=== PATIENT | male | born 1965 | race African-American/Black ===

== ENCOUNTER 2016-08-31 12:17 | Emergency (ER) | payer MEDICARE, OTHER ==
[~2016-08-31] VITALS: Ht 167.6 cm; Wt 84.0 kg
[2016-08-31 12:19] VITALS: BP 175/101; PULSE 82; RESP 20; TEMP 98.1; O2SAT 97
[2016-08-31] MEDS ORDERED: LISI40TA PO ×2 (12:51→12:55)
[2016-08-31] MEDS ORDERED: HYDR25TA5 PO ×2 (12:51→12:55)
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
== END 2016-08-31 13:53 | disposition home or self-care (01) ==
LOC: NEPB 12:17
DX: I10 Essential (primary) hypertension (principal); Z76.0 Encounter for issue of repeat prescription; Z72.0 Tobacco use
CPT/HCPCS: 99281

== ENCOUNTER 2016-09-07 13:00 | Emergency (ER) | payer MEDICARE, OTHER ==
[~2016-09-07] VITALS: Ht 167.6 cm; Wt 85.0 kg
[~2016-09-07 13:00] MED LIST: HYDR25TA5 PO; LISI40TA PO
[2016-09-07 13:01] VITALS: BP 139/89; PULSE 99; RESP 18; TEMP 98.3; O2SAT 96
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
[2016-09-07 14:09] LABS: AUTOMATED NEUTROPHIL # 4.7 TH/MM3 (1.8-7.7); BASOPHIL % 0.6 % (0.0-2.0); EOSINOPHIL # 0.1 TH/MM3 (0-0.4); EOSINOPHIL % 1.4 % (0.0-4.0); HEMATOCRIT 38.2 % (39.0-51.0); HEMO FLAGS DIFF FINAL; LYMPH % 24.5 % (9.0-44.0); LYMPHOCYTE # 1.8 TH/MM3 (1.0-4.8); MEAN CELL VOLUME 86.1 FL (80.0-100.0); MEAN CORPUSCULAR HEMOGLOBIN 27.9 PG (27.0-34.0); MEAN CORPUSCULAR HGB CONC 32.4 % (32.0-36.0); MONO % 9.5 % (0.0-8.0); PLATELET COUNT 231 TH/MM3 (150-450); RED BLOOD COUNT 4.43 MIL/MM3 (4.50-5.90); RED CELL DISTRIBUTION WIDTH 14.8 % (11.6-17.2); WHITE BLOOD COUNT 7.4 TH/MM3 (4.0-11.0)
[2016-09-07 14:19] LABS: APTT (PATIENT) 33.6 SEC (24.3-30.1); INTERNATIONAL NORMALIZED RATIO 1.2 RATIO; PROTHROMBIN TIME - PATIENT 13.3 SEC (9.8-11.6)
[2016-09-07 14:32] LABS: BICARBONATE 30.1 MEQ/L (21.0-32.0); POTASSIUM 4.2 MEQ/L (3.5-5.1)
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
[2016-09-07 16:19] VITALS: BP 133/64; PULSE 88; RESP 20; O2SAT 100
[2016-09-07] MEDS ORDERED: DIPHTH/TETANUS/ACEL PERTUSSIS (BOOSTER) 0.5 ML VIAL/PFS IM ONE (16:30)
[2016-09-07] MEDS ORDERED: CEPHALEXIN MONOHYDRATE 500 MG CAP PO ONE (16:30)
[2016-09-07] MEDS ORDERED: SULFAMETHOXAZOLE-TRIMETHOPRIM DS 800-160 MG TAB PO ONE (16:30)
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
[2016-09-07] MEDS ORDERED: BACT800T5 PO ×2 (16:43→16:57)
[2016-09-07] MEDS ORDERED: HYDR25TA5 PO ×2 (16:43→16:57)
[2016-09-07] MEDS ORDERED: CEPH-460 PO ×2 (16:43→16:57)
[2016-09-07] MEDS ORDERED: LISI40TA PO ×2 (16:43→16:57)
== END 2016-09-07 21:48 | disposition home or self-care (01) ==
LOC: NEPE 13:00
DX: M79.89 Other specified soft tissue disorders (principal); L03.115 Cellulitis of right lower limb; N28.9 Disorder of kidney and ureter, unspecified; Z76.0 Encounter for issue of repeat prescription; Z23 Encounter for immunization
CPT/HCPCS: 80048; 85025; 85610; 85730; 90471; 90715; 93971

== ENCOUNTER 2016-09-11 10:37 | Emergency (ER) | payer MEDICARE, OTHER ==
[~2016-09-11] VITALS: Ht 170.2 cm; Wt 90.0 kg
[~2016-09-11 10:37] MED LIST changes: +BACT800T5 PO; +CEPH-460 PO
[2016-09-11 10:39] VITALS: BP 154/91; PULSE 101; RESP 16; TEMP 97.8; O2SAT 98
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
[2016-09-11 11:13] LABS: AUTOMATED NEUTROPHIL # 3.4 TH/MM3 (1.8-7.7); BASOPHIL # 0.1 TH/MM3 (0-0.2); EOSINOPHIL # 0.1 TH/MM3 (0-0.4); EOSINOPHIL % 2.4 % (0.0-4.0); HEMATOCRIT 39.4 % (39.0-51.0); HEMO FLAGS DIFF FINAL; LYMPH % 33.2 % (9.0-44.0); LYMPHOCYTE # 2.1 TH/MM3 (1.0-4.8); MEAN CELL VOLUME 87.5 FL (80.0-100.0); MEAN CORPUSCULAR HEMOGLOBIN 28.2 PG (27.0-34.0); MEAN CORPUSCULAR HGB CONC 32.3 % (32.0-36.0); MONO % 9.4 % (0.0-8.0); PLATELET COUNT 256 TH/MM3 (150-450); RED CELL DISTRIBUTION WIDTH 15.3 % (11.6-17.2); WHITE BLOOD COUNT 6.2 TH/MM3 (4.0-11.0)
[2016-09-11 11:22] LABS: AMPHETAMINE, URINE NEG (NEG); BARBITURATES, URINE NEG (NEG); COCAINE, URINE POS (NEG)
[2016-09-11 11:35] LABS: ALKALINE PHOSPHATASE 78 U/L (45-117); TOTAL BILIRUBIN ADULT 0.3 MG/DL (0.2-1.0)
[2016-09-11 11:36] LABS: ALT (GPT) 70 U/L (12-78); ANION GAP 9 MEQ/L (5-15); AST (GOT) 70 U/L (15-37); BICARBONATE 29.1 MEQ/L (21.0-32.0); BLOOD UREA NITROGEN 8 MG/DL (7-18); CHLORIDE 107 MEQ/L (98-107); GLOMERULAR FILTRATION RATE 71 ML/MIN (>89); SODIUM (NA) 145 MEQ/L (136-145)
[2016-09-11 13:17] VITALS: BP 148/87; PULSE 94; RESP 18; O2SAT 98
[2016-09-11] MEDS ORDERED: ACETAMINOPHEN 500 MG CPLT PO ONE (13:30)
[2016-09-11 18:19] VITALS: BP 134/96; PULSE 83; RESP 18; TEMP 96.5; O2SAT 98
[2016-09-11 22:33] VITALS: BP 115/64; PULSE 84; RESP 19; O2SAT 98
[2016-09-12 02:32] VITALS: BP 109/57; PULSE 78; RESP 19; O2SAT 98
[2016-09-12 06:38] VITALS: BP 160/80; PULSE 71; RESP 18; O2SAT 97
== END 2016-09-12 09:00 ==
LOC: NEPC 10:37 → NEPJ 09-12 09:00
DX: F32.9 Major depressive disorder, single episode, unspecified (principal); Z59.0 Homelessness
CPT/HCPCS: 80053; 80307; 85025; 99284